=== PATIENT | male | born 1950 | race Two or more races ===

== ENCOUNTER 2023-01-18 19:32 | Inpatient (IN) | payer OTHER ==
[~2023-01-18] VITALS: Ht 177.8 cm; Wt 58.8 kg
[2023-01-18 20:20] VITALS: RESP 18; O2SAT 96
[2023-01-18 21:40] LABS: Albumin 2.8 g/dL (3.4-5.0); Calcium 9.3 mg/dL (8.5-10.1); Potassium 3.9 mmol/L (3.5-5.1)
[2023-01-18 21:41] LABS: Basophils # (auto) 0 10 ^3/uL (0-0.2); Basophils % (auto) 0.2 % (0.0-2.0); Eosinophils # (auto) 0.6 10 ^3/uL (0-0.8); Eosinophils % (auto) 4.4 % (0.0-7.0); Hematocrit 44.9 % (41.0-53.0); Lymphocytes # (auto) 1.3 10 ^3/uL (0.4-5.4); Mean Corpuscular Hgb Conc. 33.3 g/dL (32.0-36.0); Mean Corpuscular Volume 96.1 fL (80.0-100.0); Monocytes # (auto) 0.9 10 ^3/uL (0-1.3); Monocytes % (auto) 6.3 % (0.0-12.0); Neutrophils # (auto) 11.7 10 ^3/uL (1.6-8.6); Neutrophils % (auto) 80.1 % (37.0-80.0); Nucleated Red Blood Cells % 0.1 %; Red Blood Cells 4.67 10^6/uL (4.5-5.90); White Blood Cell 14.6 10^3/uL (4.4-10.8)
[2023-01-18 21:46] LABS: BUN/Creatinine Ratio 30.4 (10.0-20.0); Bilirubin, Total 0.9 mg/dL (0.2-1.0); Total Protein 8.2 g/dL (6.4-8.2)
[2023-01-19] MEDS ORDERED: DexAMETHasone SOD PHOS 10MG/1ML VIAL INJ ONE (00:43)
[2023-01-19] MEDS ORDERED: diphenhdrAMINE HCL 50 MG/1 ML VL ONE (00:43)
[2023-01-19] MEDS ORDERED: PIPERACILLIN-TAZOB 3.375GM 100 ML IV ONE ×2 (00:44→01:00)
[2023-01-19] MEDS ORDERED: VANCOMYCIN 1GM/250ML 250 ML IV ONE ×2 (00:44→01:00)
[2023-01-19] MEDS ORDERED: DexAMETHasone SOD PHOS 10MG/1ML VIAL INJ IV ONE (01:00)
[2023-01-19] MEDS ORDERED: diphenhdrAMINE HCL 50 MG/1 ML VL IV ONE (01:00)
[2023-01-19 02:20] LABS: Albumin 2.8 g/dL (3.4-5.0); BUN/Creatinine Ratio 31.3 (10.0-20.0); Calcium 9.3 mg/dL (8.5-10.1); Potassium 4.1 mmol/L (3.5-5.1)
[2023-01-19 02:23] LABS: Total Protein 8.1 g/dL (6.4-8.2)
[2023-01-19 02:27] LABS: Basophils # (auto) 0.1 10 ^3/uL (0-0.2); Basophils % (auto) 0.4 % (0.0-2.0); Eosinophils # (auto) 0.8 10 ^3/uL (0-0.8); Eosinophils % (auto) 5.4 % (0.0-7.0); Hematocrit 42.9 % (41.0-53.0); Hemoglobin 14.5 g/dL (13.5-17.5); Lymphocytes # (auto) 1.7 10 ^3/uL (0.4-5.4); Lymphocytes % (auto) 11.1 % (10.0-50.0); Mean Corpuscular Hemoglobin 32.7 pg (28.0-32.0); Mean Corpuscular Hgb Conc. 33.8 g/dL (32.0-36.0); Mean Corpuscular Volume 96.9 fL (80.0-100.0); Monocytes % (auto) 6.6 % (0.0-12.0); Neutrophils # (auto) 11.9 10 ^3/uL (1.6-8.6); Neutrophils % (auto) 76.5 % (37.0-80.0); Nucleated Red Blood Cells % 0.1 %; Red Blood Cells 4.42 10^6/uL (4.5-5.90); Red Cell Distribution Width 13.8 % (11.8-14.3); White Blood Cell 15.5 10^3/uL (4.4-10.8)
[2023-01-19 02:33] LABS: Urine Bacteria NONE SEEN /hpf (None Seen); Urine Blood 3+ /uL (Negative); Urine Clarity Clear (Clear); Urine Color Yellow (Yellow); Urine Mucus FEW (None Seen); Urine Protein, UAD TRACE (Negative); Urine Specific Gravity 1.027 (1.001-1.035); Urine Urobilinogen Normal (Negative); Urine WBC 12 /hpf (0 - 3)
[2023-01-19] MEDS ORDERED: ONDANSETRON HCL 4 MG/2 ML VIAL IV PRN (06:15)
[2023-01-19] MEDS ORDERED: VANCOMYCIN PER PHARMACY 0 MG IV SCH (06:15)
[2023-01-19] MEDS ORDERED: ACETAMINOPHEN 325 MG TAB PO PRN (06:15)
[2023-01-19] MEDS ORDERED: D5W/SOD CHL 0.45% 1,000 ML IV ONE (06:15)
[2023-01-19] MEDS ORDERED: MORPHINE SULFATE INJ 2 MG/ml SYRG IV PRN (06:15)
[2023-01-19] MEDS ORDERED: DEXTROSE (50%) 50ML SYRG IV PRN (06:15)
[2023-01-19] MEDS ORDERED: NITROGLYCERIN 0.4 MG SL TAB SL PRN (06:15)
[2023-01-19 07:35] VITALS: PULSE 72; RESP 18; O2SAT 98
[2023-01-19] MEDS: PIPERACILLIN-TAZOB 3.375GM 100 ML IV SCH ×2 (11:32→18:30)
[2023-01-19] MEDS: InsuLIN REG 1unit/0.01ml Soln (100units/ml) SC SCH ×2 (12:00→18:36)
[2023-01-19] MEDS: ACCU-CHEK COMFORT CURVE STRIP VI SCH ×2 (13:45→18:32)
[2023-01-19] MEDS: HALOPERIDOL LACTATE 5 MG/ML INJ VIAL IM PRN (15:46)
[2023-01-19] MEDS ORDERED: VANCOMYCIN 1GM/250ML 250 ML IV SCH (18:00)
[2023-01-19 19:30] VITALS: PULSE 72; RESP 18; O2SAT 98
[2023-01-19 22:05] VITALS: BP 130/61; PULSE 60; RESP 14; TEMP 97.2; O2SAT 97
[2023-01-20] VITALS (7 sets, daily range): BP systolic 102–138; BP diastolic 60–77; PULSE 74–88; RESP 18–20; TEMP 98.4–98.6; O2SAT 94–98
[2023-01-20] MEDS: ACCU-CHEK COMFORT CURVE STRIP VI SCH ×5 (00:51→23:43)
[2023-01-20] MEDS: PIPERACILLIN-TAZOB 3.375GM 100 ML IV SCH ×3 (03:27→18:28)
[2023-01-20] MEDS: InsuLIN REG 1unit/0.01ml Soln (100units/ml) SC SCH ×5 (06:00→23:43)
[2023-01-20 06:38] LABS: Calcium 9.3 mg/dL (8.5-10.1); Potassium 3.4 mmol/L (3.5-5.1)
[2023-01-20 06:44] LABS: Basophils # (auto) 0.1 10 ^3/uL (0-0.2); Basophils % (auto) 0.3 % (0.0-2.0); Nucleated Red Blood Cells % 0.1 %
[2023-01-20 06:47] LABS: Eosinophils % (auto) 6.2 % (0.0-7.0); Hematocrit 40.8 % (41.0-53.0); Hemoglobin 13.6 g/dL (13.5-17.5); Lymphocytes # (auto) 2.4 10 ^3/uL (0.4-5.4); Lymphocytes % (auto) 14.9 % (10.0-50.0); Mean Corpuscular Hemoglobin 32.1 pg (28.0-32.0); Mean Corpuscular Hgb Conc. 33.3 g/dL (32.0-36.0); Mean Corpuscular Volume 96.3 fL (80.0-100.0); Monocytes # (auto) 1.1 10 ^3/uL (0-1.3); Neutrophils # (auto) 11.7 10 ^3/uL (1.6-8.6); Neutrophils % (auto) 71.6 % (37.0-80.0); Red Blood Cells 4.24 10^6/uL (4.5-5.90); Red Cell Distribution Width 13.7 % (11.8-14.3); White Blood Cell 16.4 10^3/uL (4.4-10.8)
[2023-01-20] MEDS ORDERED: INDO50CA82 PO (09:29)
[2023-01-20] MEDS ORDERED: ALLO300T2 PO (09:29)
[2023-01-20 10:07] LABS: PSA Free 0.54 ng/mL; Prostate Specific Antigen 5.2 ng/mL (0.0-4.0)
[2023-01-20] MEDS: D5W/SOD CHLO 0.9% 1,000 ML IV SCH ×2 (13:59→23:43)
[2023-01-20] MEDS ORDERED: GASTROGRAFIN 30 ML SOL ONE (14:12)
[2023-01-21] VITALS (7 sets, daily range): BP systolic 116–147; BP diastolic 54–78; PULSE 48–90; RESP 16–20; TEMP 96.3–98.4; O2SAT 94–97
[2023-01-21] MEDS: HALOPERIDOL LACTATE 5 MG/ML INJ VIAL IM PRN (00:13)
[2023-01-21] MEDS: PIPERACILLIN-TAZOB 3.375GM 100 ML IV SCH ×3 (02:08→18:02)
[2023-01-21] MEDS: ACCU-CHEK COMFORT CURVE STRIP VI SCH ×3 (05:50→17:58)
[2023-01-21] MEDS: InsuLIN REG 1unit/0.01ml Soln (100units/ml) SC SCH ×3 (05:50→17:59)
[2023-01-21 06:07] LABS: Basophils # (auto) 0.1 10 ^3/uL (0-0.2); Basophils % (auto) 0.5 % (0.0-2.0); Eosinophils # (auto) 1.1 10 ^3/uL (0-0.8); Hemoglobin 13.1 g/dL (13.5-17.5); Lymphocytes # (auto) 2.3 10 ^3/uL (0.4-5.4); Lymphocytes % (auto) 18.3 % (10.0-50.0); Mean Corpuscular Hgb Conc. 33.6 g/dL (32.0-36.0); Mean Corpuscular Volume 95.3 fL (80.0-100.0); Neutrophils % (auto) 64.2 % (37.0-80.0); Red Cell Distribution Width 13.9 % (11.8-14.3); White Blood Cell 12.4 10^3/uL (4.4-10.8)
[2023-01-21 06:16] LABS: BUN/Creatinine Ratio 31.5 (10.0-20.0); Calcium 8.9 mg/dL (8.5-10.1); Potassium 3.3 mmol/L (3.5-5.1)
[2023-01-21] MEDS ORDERED: POTASSIUM CHLORIDE 20 MEQ, LIDOCAINE 1% (LOCAL ANESTH.) 2 ML in SODIUM CHL 0.9% 100 ML IV ONE (09:30)
[2023-01-21] MEDS: D5W/SOD CHLO 0.9% 1,000 ML IV SCH (11:32)
[2023-01-22] VITALS (7 sets, daily range): BP systolic 127–148; BP diastolic 68–75; PULSE 57–71; RESP 15–20; TEMP 97.3–98.4; O2SAT 97–99
[2023-01-22] MEDS: D5W/SOD CHLO 0.9% 1,000 ML IV SCH ×3 (01:00→17:00)
[2023-01-22] MEDS: PIPERACILLIN-TAZOB 3.375GM 100 ML IV SCH ×3 (01:57→18:38)
[2023-01-22] MEDS: InsuLIN REG 1unit/0.01ml Soln (100units/ml) SC SCH ×4 (06:00→17:40)
[2023-01-22] MEDS: ACCU-CHEK COMFORT CURVE STRIP VI SCH ×4 (06:04→17:40)
[2023-01-22 06:31] LABS: Potassium 3.9 mmol/L (3.5-5.1)
[2023-01-22 06:39] LABS: Calcium 8.9 mg/dL (8.5-10.1)
[2023-01-22 06:43] LABS: Basophils # (auto) 0.1 10 ^3/uL (0-0.2); Basophils % (auto) 0.8 % (0.0-2.0); Hemoglobin 13.6 g/dL (13.5-17.5); Monocytes # (auto) 0.9 10 ^3/uL (0-1.3); Monocytes % (auto) 6.6 % (0.0-12.0); White Blood Cell 13.1 10^3/uL (4.4-10.8)
[2023-01-22 06:45] LABS: Eosinophils # (auto) 0.7 10 ^3/uL (0-0.8); Eosinophils % (auto) 5.7 % (0.0-7.0); Hematocrit 40.5 % (41.0-53.0); Lymphocytes % (auto) 15.6 % (10.0-50.0); Mean Corpuscular Hemoglobin 32.4 pg (28.0-32.0); Mean Corpuscular Hgb Conc. 33.6 g/dL (32.0-36.0); Mean Corpuscular Volume 96.5 fL (80.0-100.0); Neutrophils # (auto) 9.4 10 ^3/uL (1.6-8.6); Neutrophils % (auto) 71.3 % (37.0-80.0); Nucleated Red Blood Cells % 0.2 %; Red Blood Cells 4.19 10^6/uL (4.5-5.90); Red Cell Distribution Width 13.8 % (11.8-14.3)
[2023-01-23] MEDS: PIPERACILLIN-TAZOB 3.375GM 100 ML IV SCH ×3 (02:40→18:31)
[2023-01-23] MEDS: D5W/SOD CHLO 0.9% 1,000 ML IV SCH ×3 (02:41→16:52)
[2023-01-23 05:00] VITALS: BP 128/63; PULSE 54; RESP 16; TEMP 97.2; O2SAT 100
[2023-01-23] MEDS: InsuLIN REG 1unit/0.01ml Soln (100units/ml) SC SCH ×4 (05:46→16:59)
[2023-01-23] MEDS: ACCU-CHEK COMFORT CURVE STRIP VI SCH ×4 (05:47→16:53)
[2023-01-23 05:58] VITALS: BP 128/63; PULSE 54; RESP 16; TEMP 97.2; O2SAT 100
[2023-01-23 07:09] LABS: Basophils # (auto) 0.1 10 ^3/uL (0-0.2); Basophils % (auto) 0.7 % (0.0-2.0); Eosinophils % (auto) 7.9 % (0.0-7.0); Hemoglobin 13.4 g/dL (13.5-17.5); Lymphocytes # (auto) 2.2 10 ^3/uL (0.4-5.4); Lymphocytes % (auto) 17.2 % (10.0-50.0); Mean Corpuscular Hemoglobin 32.1 pg (28.0-32.0); Mean Corpuscular Hgb Conc. 32.8 g/dL (32.0-36.0); Mean Corpuscular Volume 98.1 fL (80.0-100.0); Monocytes # (auto) 0.9 10 ^3/uL (0-1.3); Monocytes % (auto) 6.7 % (0.0-12.0); Neutrophils # (auto) 8.7 10 ^3/uL (1.6-8.6); Neutrophils % (auto) 67.5 % (37.0-80.0); Red Blood Cells 4.18 10^6/uL (4.5-5.90); Red Cell Distribution Width 13.7 % (11.8-14.3); White Blood Cell 12.9 10^3/uL (4.4-10.8)
[2023-01-23 07:26] LABS: Calcium 8.8 mg/dL (8.5-10.1); Potassium 3.5 mmol/L (3.5-5.1)
[2023-01-23 08:00] VITALS: PULSE 52; RESP 20; O2SAT 97
[2023-01-23 17:00] VITALS: BP 139/71; PULSE 70; RESP 18; TEMP 98.3; O2SAT 99
[2023-01-23] MEDS: HALOPERIDOL LACTATE 5 MG/ML INJ VIAL IM PRN (18:09)
[2023-01-23 20:00] VITALS: PULSE 65; PULSE 86; RESP 20; O2SAT 97
[2023-01-23 22:00] VITALS: BP 134/74; PULSE 61; RESP 18; TEMP 97.8; O2SAT 98
[2023-01-24] VITALS (7 sets, daily range): BP systolic 131–141; BP diastolic 72–78; PULSE 55–81; RESP 16–20; TEMP 97.8–98.3; O2SAT 96–98
[2023-01-24] MEDS: ACCU-CHEK COMFORT CURVE STRIP VI SCH ×5 (00:14→23:10)
[2023-01-24] MEDS: D5W/SOD CHLO 0.9% 1,000 ML IV SCH ×3 (01:00→17:00)
[2023-01-24] MEDS: PIPERACILLIN-TAZOB 3.375GM 100 ML IV SCH ×3 (01:39→18:24)
[2023-01-24] MEDS: InsuLIN REG 1unit/0.01ml Soln (100units/ml) SC SCH ×5 (06:00→23:10)
[2023-01-24 06:05] LABS: Basophils # (auto) 0.1 10 ^3/uL (0-0.2); Basophils % (auto) 0.9 % (0.0-2.0); Eosinophils # (auto) 1.3 10 ^3/uL (0-0.8); Eosinophils % (auto) 11.6 % (0.0-7.0); Hematocrit 41.1 % (41.0-53.0); Hemoglobin 13.5 g/dL (13.5-17.5); Lymphocytes # (auto) 2.4 10 ^3/uL (0.4-5.4); Lymphocytes % (auto) 21.8 % (10.0-50.0); Mean Corpuscular Hemoglobin 32.4 pg (28.0-32.0); Mean Corpuscular Hgb Conc. 32.9 g/dL (32.0-36.0); Mean Corpuscular Volume 98.5 fL (80.0-100.0); Monocytes # (auto) 0.7 10 ^3/uL (0-1.3); Monocytes % (auto) 6.3 % (0.0-12.0); Neutrophils # (auto) 6.5 10 ^3/uL (1.6-8.6); Neutrophils % (auto) 59.4 % (37.0-80.0); Red Blood Cells 4.17 10^6/uL (4.5-5.90)
[2023-01-24 06:15] LABS: Anion Gap 4 (5-15); Blood Urea Nitrogen 21 mg/dL (7-18); Calcium 8.6 mg/dL (8.5-10.1); Carbon Dioxide 25 mmol/L (21-32); Chloride 124 mmol/L (98-107); GFR African American 115 mL/min; GFR Non-African American 95 mL/min; Glucose 96 mg/dL (74-106); Potassium 3.9 mmol/L (3.5-5.1); Sodium 153 mmol/L (136-145)
[2023-01-24] MEDS ORDERED: GASTROGRAFIN 30 ML SOL XX ONE (14:15)
[2023-01-25] MEDS: D5W 5% 1,000 ML IV SCH ×3 (00:04→14:45)
[2023-01-25] MEDS: PIPERACILLIN-TAZOB 3.375GM 100 ML IV SCH ×2 (01:57→11:25)
[2023-01-25 05:00] VITALS: BP 120/73; PULSE 61; RESP 16; TEMP 97.4; O2SAT 96
[2023-01-25] MEDS: InsuLIN REG 1unit/0.01ml Soln (100units/ml) SC SCH ×3 (05:24→18:56)
[2023-01-25] MEDS: ACCU-CHEK COMFORT CURVE STRIP VI SCH ×3 (05:25→18:56)
[2023-01-25 07:01] LABS: Basophils # (auto) 0.1 10 ^3/uL (0-0.2); Basophils % (auto) 0.9 % (0.0-2.0); Eosinophils # (auto) 1.1 10 ^3/uL (0-0.8); Eosinophils % (auto) 9.7 % (0.0-7.0); Hematocrit 39.9 % (41.0-53.0); Lymphocytes # (auto) 2.2 10 ^3/uL (0.4-5.4); Lymphocytes % (auto) 20.3 % (10.0-50.0); Mean Corpuscular Hemoglobin 31.8 pg (28.0-32.0); Mean Corpuscular Hgb Conc. 32.5 g/dL (32.0-36.0); Mean Corpuscular Volume 97.6 fL (80.0-100.0); Monocytes # (auto) 0.7 10 ^3/uL (0-1.3); Monocytes % (auto) 6.1 % (0.0-12.0); Neutrophils # (auto) 6.9 10 ^3/uL (1.6-8.6); Red Blood Cells 4.09 10^6/uL (4.5-5.90); Red Cell Distribution Width 13.7 % (11.8-14.3); White Blood Cell 10.9 10^3/uL (4.4-10.8)
[2023-01-25 07:30] VITALS: PULSE 50
[2023-01-25 07:50] LABS: Potassium 3.5 mmol/L (3.5-5.1)
[2023-01-25 07:53] LABS: BUN/Creatinine Ratio 23.3 (10.0-20.0); Calcium 8.4 mg/dL (8.5-10.1)
[2023-01-25 08:39] VITALS: BP 136/62; PULSE 50; RESP 18; TEMP 97.5; O2SAT 98
[2023-01-25 13:00] VITALS: BP 139/67; PULSE 59; RESP 20; TEMP 98.4; O2SAT 96
[2023-01-25] MEDS ORDERED: GASTROGRAFIN 30 ML SOL ONE (15:11)
[2023-01-25 17:00] VITALS: BP 131/69; PULSE 58; RESP 20; TEMP 97.3; O2SAT 98
[2023-01-25] MEDS: Ensure Enlive Vanilla 8oz Bottle GT SCH (18:48)
[2023-01-25 20:00] VITALS: PULSE 83
[2023-01-26] VITALS (7 sets, daily range): BP systolic 112–137; BP diastolic 56–68; PULSE 56–73; RESP 14–18; TEMP 97–98.7; O2SAT 92–98
[2023-01-26] MEDS: D5W 5% 1,000 ML IV SCH ×2 (02:13→06:45)
[2023-01-26] MEDS: InsuLIN REG 1unit/0.01ml Soln (100units/ml) SC SCH ×4 (06:00→17:46)
[2023-01-26] MEDS: ACCU-CHEK COMFORT CURVE STRIP VI SCH ×4 (06:00→17:47)
[2023-01-26 06:10] LABS: Potassium 3.3 mmol/L (3.5-5.1)
[2023-01-26 06:15] LABS: BUN/Creatinine Ratio 26.2 (10.0-20.0)
[2023-01-26] MEDS: Ensure Enlive Vanilla 8oz Bottle GT SCH ×3 (08:00→17:22)
[2023-01-26] MEDS ORDERED: D5W 5% 1,000 ML IV SCH (15:00)
[2023-01-26 15:56] LABS: BUN/Creatinine Ratio 19.4 (10.0-20.0); Potassium 3.1 mmol/L (3.5-5.1)
[2023-01-26] MEDS ORDERED: POTASSIUM CHLORIDE 20 MEQ, LIDOCAINE 1% (LOCAL ANESTH.) 2 ML in SODIUM CHL 0.9% 100 ML IV ONE (18:15)
[2023-01-26] MEDS: POTASSIUM EFFERVESENT TAB 25 MEQ GT SCH (22:23)
[2023-01-27] MEDS: ACCU-CHEK COMFORT CURVE STRIP VI SCH ×4 (00:51→18:00)
[2023-01-27 05:00] VITALS: BP_SYST 131; BP_SYST 137; BP_DIAS 73; BP_DIAS 95; PULSE 70; PULSE 87; RESP 18; TEMP 97.6; O2SAT 97
[2023-01-27] MEDS: InsuLIN REG 1unit/0.01ml Soln (100units/ml) SC SCH ×4 (05:42→18:00)
[2023-01-27 08:00] VITALS: PULSE 75; PULSE 81; RESP 18; O2SAT 98
[2023-01-27] MEDS: Ensure Enlive Vanilla 8oz Bottle GT SCH ×3 (08:00→18:26)
[2023-01-27 08:40] LABS: Calcium 8.8 mg/dL (8.5-10.1); Magnesium 2.3 mg/dL (1.6-2.6); Potassium 3.5 mmol/L (3.5-5.1)
[2023-01-27 08:42] LABS: BUN/Creatinine Ratio 20.5 (10.0-20.0)
[2023-01-27] MEDS: POTASSIUM EFFERVESENT TAB 25 MEQ GT SCH ×2 (09:12→21:40)
[2023-01-27] MEDS ORDERED: MIDAZOLAM HCL 5 MG/ML-1ML VIAL ONE (11:04)
[2023-01-27] MEDS ORDERED: fentaNYL CITRATE 100 MCG/2 ML VL ONE (11:04)
[2023-01-27] MEDS ORDERED: diphenhdrAMINE HCL 50 MG/1 ML VL ONE (11:04)
[2023-01-27] MEDS ORDERED: SODIUM CHLORIDE LOCK 0 ML ONE (11:04)
[2023-01-27 20:00] VITALS: PULSE 81; RESP 18; O2SAT 98
[2023-01-27 22:00] VITALS: BP 136/70; PULSE 72; RESP 18; TEMP 98; O2SAT 98
[2023-01-28] MEDS: ACCU-CHEK COMFORT CURVE STRIP VI SCH ×4 (00:08→18:05)
[2023-01-28 05:00] VITALS: BP 129/73; PULSE 69; RESP 17; TEMP 97.7; O2SAT 95
[2023-01-28] MEDS: InsuLIN REG 1unit/0.01ml Soln (100units/ml) SC SCH ×4 (05:37→18:00)
[2023-01-28 06:07] LABS: Basophils # (auto) 0.1 10 ^3/uL (0-0.2); Basophils % (auto) 0.5 % (0.0-2.0); Eosinophils # (auto) 1.1 10 ^3/uL (0-0.8); Eosinophils % (auto) 8.9 % (0.0-7.0); Hematocrit 37.7 % (41.0-53.0); Hemoglobin 12.7 g/dL (13.5-17.5); Lymphocytes # (auto) 2.1 10 ^3/uL (0.4-5.4); Lymphocytes % (auto) 16.8 % (10.0-50.0); Mean Corpuscular Hemoglobin 32.1 pg (28.0-32.0); Mean Corpuscular Hgb Conc. 33.6 g/dL (32.0-36.0); Mean Corpuscular Volume 95.4 fL (80.0-100.0); Monocytes # (auto) 0.7 10 ^3/uL (0-1.3); Monocytes % (auto) 5.6 % (0.0-12.0); Neutrophils # (auto) 8.5 10 ^3/uL (1.6-8.6); Neutrophils % (auto) 68.2 % (37.0-80.0); Nucleated Red Blood Cells % 0.1 %; Red Blood Cells 3.95 10^6/uL (4.5-5.90); Red Cell Distribution Width 13.3 % (11.8-14.3); White Blood Cell 12.4 10^3/uL (4.4-10.8)
[2023-01-28 06:25] LABS: Calcium 8.6 mg/dL (8.5-10.1); Potassium 4.1 mmol/L (3.5-5.1)
[2023-01-28 06:28] LABS: BUN/Creatinine Ratio 19.5 (10.0-20.0)
[2023-01-28 08:00] VITALS: PULSE 73
[2023-01-28] MEDS: Ensure Enlive Vanilla 8oz Bottle GT SCH ×3 (08:00→18:05)
[2023-01-28] MEDS: POTASSIUM EFFERVESENT TAB 25 MEQ GT SCH (09:00)
[2023-01-28 13:00] VITALS: BP 115/61; PULSE 85; RESP 18; TEMP 98.3; O2SAT 92
[2023-01-28 16:09] VITALS: BP 115/61; PULSE 85; RESP 18; TEMP 98.3; O2SAT 92
[2023-01-28 17:00] VITALS: BP 128/79; PULSE 82; RESP 18; TEMP 97.3; O2SAT 97
== END 2023-01-28 19:00 | DRG 394 ==
LOC: EDBD 19:32 → ER 19:35 → TELE 01-19 06:21 → TELE-WESTW 01-19 20:51
PROVIDERS: ADMIT Hospitalist; ATTEND Hospitalist
DX: K94.23 Gastrostomy malfunction (principal); E44.0 Moderate protein-calorie malnutrition; E87.0 Hyperosmolality and hypernatremia; Z68.1 Body mass index [BMI] 19.9 or less, adult; I25.10 Atherosclerotic heart disease of native coronary artery without angina pectoris; N40.0 Benign prostatic hyperplasia without lower urinary tract symptoms; R94.5 Abnormal results of liver function studies; E86.0 Dehydration; Z81.8 Family history of other mental and behavioral disorders; Z80.1 Family history of malignant neoplasm of trachea, bronchus and lung
CPT/HCPCS: 36415; 70450; 71250; 74021; 74176; 80048; 80053; 81001; 82962; 83605; 83735; 83880; 84154; 84484; 85025; 86850; 86900; 86901; 87040; 87086; 96365; 96367; 96372; 96375; 97110; 97116; 97163; 97530; G0378; J1100; J1815; J2001; J2250; J2543; J7042